=== PATIENT | female | born 1990 | race Caucasian/White ===

== ENCOUNTER 2019-11-25 14:33 | Emergency (ER) | payer OTHER, SELFPAY ==
--- NOTE | ~2019-11-25 | XR_ITS ---
XR chest 2V DATE: 11/25/2019 15:38 INDICATION: Shortness of breath. Burning sensation in chest. TECHNIQUE: 2 views COMPARISON: None FINDINGS: Normal heart size. No hilar or mediastinal enlargement. No pulmonary infiltrate or consolid ation, pleural effusion or pulmonary vascular congestion or pneumothorax. IMPRESSION: Negative Reviewed, dictated and finalized at location A. IMPRESSION: Negative
[2019-11-25 14:38] VITALS: BP 138/85; PULSE 84; RESP 20; TEMP 36.3; O2SAT 100
--- NOTE | 2019-11-25 14:47 | ED_ITS ---
I attest that this documentation has been prepared under the direction and in the presence of Jaleesa Oliveros MD. Melquiades Saavedra, Wendy 11/25/19;14:48 HPI - SOB/Dyspnea General Chief Complaint: Shortness of Breath/Dyspnea Stated Complaint: SHORT OF BREATH Time Seen by Provider: 11/25/19 14:43 History of Present Illness HPI Narrative: wednesday, started feeling burning in her chest and stomach, has not gone away nothing worsens her pain one day ago, SOB Left shoulder pain onset one week ago that is constant and aching, worsens with lifting no cough fever runny nose n/v normal bm experienced pain stress eating vit d def iron anemia abx wednesday amoxicillin for ear infection, resolved ear ache tubal hernia c section Related Data Allergies Allergy/AdvReac Type Severity Reaction Status Date / Time No Known Allergies Allergy Unverified 11/25/19 15:05 Review of Systems Review of Systems: All systems reviewed & are unremarkable except as noted in HPI and below Course Vital Signs Vital signs: Vital Signs Temperature 36.3 C L 11/25/19 14:38 Pulse Rate 84 11/25/19 14:38 Respiratory Rate 20 11/25/19 14:38 Blood Pressure 138/85 11/25/19 14:38 Pulse Oximetry 100 11/25/19 14:38 Temperature 36.3 C L 11/25/19 14:38 Pulse Rate 84 11/25/19 14:38 Respiratory Rate 20 11/25/19 14:38 Blood Pressure 138/85 11/25/19 14:38 Pulse Oximetry 100 11/25/19 14:38
--- NOTE | 2019-11-25 14:58 | ECG_ITS ---
Measurements Intervals Oliver Rate: 85 P: 34 SC: 149 QRS: 25 QRSD: 92 T: 34 QT: 356 QTc: 425 Interpretive Statements SINUS RHYTHM WITH SINUS ARRHYTHMIA NORMAL ECG Electronically Signed On 11-26-2019 9:27:58 CDT by Jesse Fried D.O.
--- NOTE | 2019-11-25 15:07 | ED.CHESTPAIN ---
HPI - Chest Pain General Chief Complaint: Shortness of Breath/Dyspnea Stated Complaint: SHORT OF BREATH Time Seen by Provider: 11/25/19 14:43 Source: patient Mode of arrival: ambulatory Limitations: no limitations History of Present Illness HPI narrative: The pt is a 29 y/o female who presents to the ED c/o 01/20 burning central CP onset three days ago. Pt states that the pain started in her abdomen before moving up into her chest. She states that it has not gone away, but is not worsened by anything. Pt notes that she has experienced CP in the past, but related to anxiety. Pt reports SOB, but denies cough, fever, N/V, and runny nose. Pt states that she has experienced left shoulder pain that worsens with movement for one week. She also states that she was given Amoxicillin on 11/20/19 due to her having an ear infection. Pt states that she takes medication for iron deficiency, Vitamin D deficiency, and stress eating. She states that she has a PSHx of tubal ligation, , and hernia repair. MD complaint: chest pain Onset (ago): day(s) (3) Pain location: other (Central chest, initially started in the ABD) Pain scale (0-10): 5 Quality: burning Exacerbating factors: nothing Associated symptoms: dyspnea and other (Left shoulder pain (Worsens with movement, onset one week ago)) Related Data Home Medications Medication Instructions Recorded Confirmed amoxicillin 875 mg PO BID 11/25/19 bupropion HCl 100 mg PO Q12-24H 11/25/19 ergocalciferol (vitamin D2) unit PO WEEKLY 11/25/19 [Vitamin D2] ferrous sulfate [Iron (ferrous 325 mg PO DAILY 11/25/19 sulfate)] Allergies Allergy/AdvReac Type Severity Reaction Status Date / Time No Known Allergies Allergy Unverified 11/25/19 15:05 Review of Systems Review of Systems: All systems reviewed & are unremarkable except as noted in HPI and below Constitutional: Constitutional: Denies fever(s) ENT: Denies other (Rhinorrhea) Cardiovascular: Cardiovascular: Reports chest pain (Central, burning, started in abdomen) Respiratory: Respiratory: Denies cough and Reports dyspnea Gastrointestinal: Gastrointestinal: Denies nausea and Denies vomiting Musculoskeletal: Musculoskeletal: Reports arthralgias (Left shoulder, worsens with movement, onset one week ago) [facility] Past Medical History Medical History (Updated 11/25/19 @ 16:45 by Jaleesa Oliveros MD) Eating disorder Stress eating Inguinal hernia Iron deficiency Vitamin D deficiency Surgical History Surgical History (Updated 11/25/19 @ 15:15 by Melquiades Saavedra) H/O section H/O inguinal hernia repair H/O tubal ligation Social History Social History (Updated 11/25/19 @ 15:15 by Melquiades Saavedra) Smoking status: Never smoker Comments PCP: Dr. Vallejo Exam Narrative: Exam Narrative: GENERAL: Well-appearing, well-nourished, and in no acute distress. HEAD: Normocephalic, atraumatic EYES: PERRLA and EOMI, conjunctiva clear without discharge EARS: TM's clear bilaterally without erythema or dullness NOSE: Nares clear, no rhinorrhea or epistaxis THROAT:Mucous membranes moist, Oropharynx normal without erythema, exudate, peritonsillar swelling or fluctuance NECK: Supple, without lymphadenopathy or mass RESPIRATORY: No respiratory distress, Airway patent, Respirations non-labored, Clear to auscultation without rales, rhonchi or wheeze HEART: Regular rate and rhythm. No murmur heard. Normal peripheral pulses. ABDOMEN: Soft, nontender, nondistended, normal active bowel sounds. No masses. No rebound or guarding, No organomegaly. EXTREMITIES: No edema, normal strength with full range of motion. SKIN: Warm, dry, normal color without rash NEURO: Alert and oriented x3. CN 2-12 grossly intact. No focal deficits. PSYCH:flat affect. Course Course Emergency Course: PAtient presented with burning epigastric abdominal pain . Her pain she states resolved after GI cocktail. I have discussed labs are
[2019-11-25 15:08] VITALS: PULSE 84
[2019-11-25 15:20] LABS: Basophils Absolute Auto 0.1 K/mm3 (0.0-0.1); Basophils Percent Auto 0.6 % (0.2-1.2); Eosinophils Absolute Auto 0.1 K/mm3 (0-0.3); Eosinophils Percent Auto 1.1 % (0-4.4); Hematocrit 43.3 % (37.0-47.0); Immature Granulocyte Absolute 0.02 K/mm3 (0.00-0.031); Immature Granulocyte Percent A 0.2 % (0-0.5); Lymphocytes Absolute Auto 3.57 K/mm3 (0.9-3.2); Lymphocytes Percent Auto 30.9 % (18.3-44.2); Mean Corpuscular HGB Conc 32.3 g/dl (32-36); Mean Corpuscular Volume 89.6 fl (80-100); Monocytes Absolute Auto 0.7 K/mm3 (0.1-0.6); Monocytes Percent Auto 6.3 % (2.6-8.5); Neutrophils Percent Auto 60.9 % (45.5-73.1); Platelet Count Result 278 k/mm3 (150-375); Red Blood Count 4.83 M/mm3 (4.2-5.4); Red Cell Distribution Width 12.9 % (11.5-14.5); White Blood Count 11.5 K/mm3 (4.5-10.0)
[2019-11-25 15:29] LABS: Fractional Inspired Oxygen 21 %; HCO3 ABG 22.2 mEq/l (22.0-26.0); Methemoglobin ABG 0.3 %THb (0-1.5)
[2019-11-25 15:30] LABS: INR 0.9; Partial Thromboplastin Time 31.2 SECONDS (22.3-36.8); Prothrombin Time 11.9 Seconds (11.1-14.7)
[2019-11-25 15:31] LABS: Add Urine Microscopic? YES; Appearance Urine Clear (Clear); Bilirubin Urine Negative (Negative); Blood Urine 1+ (Negative); Color Urine Yellow (Yellow); Glucose Urine UA Negative (Negative); Ketones Urine Negative (Negative); Leukocyte Esterase Ur Negative LEU/UL (Negative); Mucus Urine Few /lpf; Nitrate Urine Negative (Negative); Protein Urine 1+ mg/dL (Negative); RBC Urine 0-2 /hpf (0-2); Specific Grav Ur 1.026 (1.001-1.035); Squamous Epithelial Cell Urine Many /hpf (Few); Urobilinogen Urine Negative mg/dL (<2.0); WBC Urine 0-3 /hpf
[2019-11-25] MEDS: PANTOPRAZOLE SODIUM IV 40 MG VIAL IV PUSH (15:32)
[2019-11-25 15:33] LABS: D Dimer 0.29 ug/mL (<0.48)
[2019-11-25] MEDS: BELLADONNA ALK/PHENOB ELIX 10 ML, MAG HYDROX/ALUMINUM HYD/SIMETH 30 ML, LIDOCAINE HCL 2... PO (15:33)
[2019-11-25 15:35] LABS: Base Excess ABG -2.1 mEq/l (+/-2.0); Oxygen Saturation ABG 96.8 % (95.0-100.0); PCO2 ABG 36.6 mmHg (35.0-45.0); PO2 ABG 88.2 mmHg (80.0-100.0)
[2019-11-25 15:36] LABS: Alveolar/Arterial O2 Gradient 17.7 mmHg; Carboxyhemoglobin 0.4 % THb (0-2.0); Device ROOM AIR; Modified Allen's Test Pass; Oxygen Content ABG 18.5 %vol (16.0-22.0); Oxyhemoglobin 95.6 % THb (90.0-100.0); Reduced Hemoglobin 3.7 %THb (0-5.0); Site Drawn LEFT RADIAL; Total Hemoglobin 13.7 g/dL (12.0-18.0)
[2019-11-25 15:45] LABS: Troponin I < 0.012 ng/mL (0.000-0.034)
[2019-11-25 16:14] LABS: Alanine Aminotransferase 25 U/L (4-35); Albumin Level 4.7 g/dL (3.5-5.1); Alkaline Phosphatase 85 U/L (38-126); Aspartate Amino Transferase 26 U/L (14-36); Bilirubin,Total 0.3 mg/dL (0.2-1.3); Blood Urea Nitrogen 12 mg/dL (7-17); Calcium 9.5 mg/dL (8.4-10.2); Carbon Dioxide 26 mmol/L (22-30); Chloride 105 mmol/L (98-107); Estimated CRCL calculation 111 ml/min; Estimated Glomerular Filt Rate > 60; Glucose 80 mg/dL (65-105); Lipase 104 U/L (23-300); Magnesium 1.9 mg/dL (1.6-2.3); Potassium 3.8 mmol/L (3.4-5.0); Sodium 140 mmol/L (137-145)
[2019-11-25 16:58] VITALS: BP 113/69; PULSE 78; RESP 18; O2SAT 100
== END 2019-11-25 17:00 | disposition home or self-care (01) ==
PROVIDERS: Emergency Provider General Practice; PCP Family Medicine
DX: R07.89 Other chest pain (principal); K21.9 Gastro-esophageal reflux disease without esophagitis; E55.9 Vitamin D deficiency, unspecified; D50.9 Iron deficiency anemia, unspecified
CPT/HCPCS: 36415; 36600; 71046; 80053; 81001; 81025; 82375; 82805; 83050; 83690; 83735; 84484; 85025; 85380; 85610; 85730; 93005; 96374; 99284; A9270; C9113

== ENCOUNTER 2024-12-01 08:52 | Emergency (ER) | payer OTHER, MEDICAID, SELFPAY ==
--- NOTE | ~2024-12-01 | XR_ITS ---
Right Hand Technique: PA, oblique, and lateral views were obtained. Clinical History: Fifth metacarpal pain Findings: No acute fracture or dislocation is seen. Osseous alignment is anatomic. Joint spaces are p reserved. Soft tissues are unremarkable. Impression: Unremarkable right hand. Reviewed, dictated and finalized at location . Impression: Unremarkable right hand.
--- NOTE | 2024-12-01 09:02 | ED.UPPEXIN ---
HPI - Extremity Injury (Upper) General Chief Complaint: Extremity Injury, Upper Stated Complaint: RT Hand injury Time Seen by Provider: 12/01/24 09:05 Source: patient, RN notes reviewed and old records reviewed Mode of arrival: ambulatory Limitations: no limitations History of Present Illness HPI narrative: 34-year-old female presents to the [facility] with right hand pain. States that 3 days ago she punched hard object. Tenderness and mild swelling noted to the 5th metacarpal. Does have full range of motion of fingers. Treatments prior to arrival: cold therapy Related Data Home Medications ?Medication ?Instructions ?Recorded ?Confirmed ?Last Taken ?Type bupropion HCl 100 mg tablet,12 hr 100 mg PO Q12-24H 11/25/19 Unknown History sustained-release ergocalciferol (vitamin D2) 1,250 unit PO WEEKLY 11/25/19 Unknown History mcg (50,000 unit) capsule (Vitamin D2) ferrous sulfate 325 mg (65 mg 325 mg PO DAILY 11/25/19 Unknown History iron) tablet (Iron (ferrous sulfate)) Allergies Allergy/AdvReac Type Severity Reaction Status Date / Time No Known Allergies Allergy Verified 12/01/24 09:14 Review of Systems Review of Systems: All systems reviewed & are unremarkable except as noted in HPI and below Constitutional: Constitutional: Reports no additional constitutional complaints ENT: Reports system reviewed and no additional complaints, except as documented Cardiovascular: Cardiovascular: Reports no additional cardiovascular complaints, Denies chest pain and Denies dyspnea Respiratory: Respiratory: Reports no additional respiratory complaints, Denies chest congestion, Denies cough and Denies dyspnea Musculoskeletal: Musculoskeletal: Reports as per HPI Integumentary/Breasts: Skin/Breast: Reports system reviewed and no additional complaints, except as docu PMFSH Past Medical History Medical History Eating disorder Stress eating Vitamin D deficiency Iron deficiency Inguinal hernia Surgical History Surgical History H/O tubal ligation H/O section H/O inguinal hernia repair Social History Social History Smoking status: Never smoker Comments At the time of my signature, I reviewed and agree with the nursing past medical, surgical, social, and family history. There is no relevant family history pertinent to the patient complaint. Exam Const: General: cooperative, healthy appearing, comfortable, no acute distress, well developed, alert and well nourished Nutritional Appearance: well nourished and obese Orientation/consciousness: patient oriented x3 Limitations: no limitations HENMT: Head: normal to inspection Eyes: General: appearance normal, both eyes and all related structures Alignment and Position: alignment normal Neck: Neck: normal visual inspection, full ROM, no lymphadenopathy and no meningeal signs Chest: Chest palpation & inspection: normal inspection of the chest Resp: Effort & Inspection: normal respiratory effort and able to speak in complete sentences Cardio: Rate: regular rate Skin: General skin exam: normal color and no rashes or lesions noted Neuro: General: patient oriented x3, gait normal, moves all extremities and no meningeal signs Cognition (Neuro): normal cognition Speech: normal speech Gait exam (Neuro): Normal gait present Extrem: General: normal to inspection, full ROM, capillary refill normal and normal gait Right upper extremity: Extremity exam: right hand normal capillary refill, neuromotor exam normal wrist extension normal, thumb opposition normal, thumb IP flexion normal, thumb ADduction normal and fingers 2-5 ABduction normal, tenderness of the dorsal hand over the 5th metacarpal, normal ROM of fingers and swelling of the dorsal hand over the 5th metacarpal; no abrasions, no lacerations and no ecchymosis Psych: Appearance: grossly normal and well kempt Mental Status: mental status grossly normal Speech and movement: Normal speech and movement present and Clear speech present Affect: normal affect Attitude: cooperative Course Course Level of Care: Express Care Visit Vital Signs Vital signs: Vital Signs Temperature 98.0 F 12/01/24 09:05 Pulse Rate 70 12/01/24 09:05 Respiratory Rate 17 12/01/24 09:05 Blood Pressure 111/71 12/01/24 09:05 Pulse Oximetry 100 12/01/24 09:05 Oxygen Delivery Room Air 12/01/24 09:05 Temperature 98.0 F 12/01/24 09:05 Pulse Rate 70 12/01/24 09:05 Respiratory Rate 17 12/01/24 09:05 Blood Pressure 111/71 12/01/24 09:05 Pulse Oximetry 100 12/01/24 09:05 Oxygen Delivery Room Air 12/01/24 09:05 Reviewed MDM - Extremity Injury (Upper) MDM Narrative Medical decision making narrative: Patient presents with 5th metacarpal pain right hand. Punched something 3 days ago. X-ray negative Patient sitting in exam room. Nontoxic, vitals stable. Patient is appropriate for outpatient treatment with close follow-up. Discharge instructions reviewed with patient, as well as provided in writing per nursing staff. The instructions also include specific and strict return/GO TO THE ER as well as f/u information. All questions have been answered, and the patient deny any further questions with discharge and discharge plan. Some parts of this dictation were generated by voice recognition software and may contain typographical and/or grammatical inaccuracies. Differential Diagnosis Differential diagnosis: Likely other (Hand fracture, contusion, sprain) Imaging Data Radiologist's impression: Right Hand Technique: PA, oblique, and lateral views were obtained. Clinical History: Fifth metacarpal pain Findings: No acute fracture or dislocation is seen. Osseous alignment is anatomic. Joint spaces are preserved. Soft tissues are unremarkable. Impression: Unremarkable right hand. Critical Care Time Critical Care Time Critical Care Time: No Discharge Plan Discharge Clinical Impression: Hand pain, right Patient Disposition: Home, Self-Care Condition: Stable Instructions: Antibiotic Form, Hand Sprain (ED) Additional Instructions: Your Xray did not show a fracture. Ice should be applied to help reduce swelling. It can be used for 20 to 30 minutes, every 2-3 hours while awake. Do not apply ice directly to your skin. You can alternate ibuprofen 600mg and Tylenol 650mg every 4 hours as needed for pain Please schedule a follow-up visit with your personal physician for further evaluation and treatment within 2 weeks especially if symptoms persist. For new or worsening symptoms go directly to the emergency room Patient Language: Libyan Prescriptions: No Action bupropion HCl 100 mg tablet sustained-release 12 hr 100 mg PO Q12-24H ferrous sulfate [Iron (ferrous sulfate)] 325 mg (65 mg iron) Tablet 325 mg PO DAILY ergocalciferol (vitamin D2) [Vitamin D2] 1,250 mcg (50,000 unit) capsule PO WEEKLY pantoprazole 40 mg tablet,delayed release (DR/EC) 40 mg PO QAM 28 Days Qty: 28 0RF Follow-up/Referrals: Sy,MD Federico [Primary Care Provider] - 2 Weeks ([facility] follow-up, right) Stand Alone Forms: Work/School Release IP Time of Disposition: 09:29
[2024-12-01 09:05] VITALS: BP 111/71; PULSE 70; RESP 17; TEMP 36.7; O2SAT 100
--- OUTSIDE RECORDS SUMMARY | 2024-12-01 09:53 | XMS_ITS | Clinical Summary ---
Author Organization [facility] Address [address] [place] [address] Care Team Providers Care Claims Collector Name Role Phone Ina Duran NP Primary Care Provider [phone] Marcelle Solis DO Unavailable Allergies Active Allergy Reactions Criticality Noted Date Comments Nickel Rash Medium 12/13/2017 Reaction: Rash, Medications triamcinolone (KENALOG) 0.1 % cream Apply 1 application topically 2 (two) times a day 2 Active HYDROcodone-odette taminophen (NORCO) 5-325 mg per tabletIndicatio ns:Pain Take 1 tablet by mouth every 6 (six) hours as needed for pain 12 tablet 2 Active Active Problems Problem Noted Date Diagnosed Date TOA (tubo-ovarian abscess) 11/07/2021 Tubo-ovarian abscess 11/07/2021 Abnormal uterine bleeding 08/24/2016 Dysmenorrhea 08/24/2016 Encounter for contraceptive management 6 Id reaction 06/10/2016 Allergic contact dermatitis due to drugs in contact with skin 06/10/2016 Eczema 06/09/2016 Surgical History Surgery Date Site/Laterality Comments [place] DELIVERY ONLY Section - (Added by TW Conv) [place] UNLISTED PROCEDURE ABDOME N PERITONEUM & OMENTUM Hernia Repair - (Added by TW Conv) Family History Medical History Relation Name Comments Asthma Father Family history of asthma - (Added by TW Conv) Diabetes Father Family history of diabetes mellitus - (Added by TW Conv) Relation Name Status Comments Father Social History Tobacco Use Types Packs/Day Years Used Date Smoking Tobacco: Never Smokeless Tobacco: Never Alcohol Use Standard Drinks/Week Comments Yes 0 (1 standard drink = 0.6 oz pur e alcohol) occasionally AUDIT-C Answer Date Recorded Q1: How often do you have a drink containing alc ohol? 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 Gender Identity Not on file Sexual Orientation Not on file Obstetrics History Last Filed Vital Signs Vital Sign Reading Time Taken Comments Blood Pressure 111/72 06/02/2022 8:10 PM CDT Pulse 66 06/02/2022 8:10 PM CDT Temperature 36.7 C (98 F) 06/02/2022 6:05 PM CDT Respiratory Rate 14 06/02/2022 8:10 PM CDT Oxygen Saturation 99% 06/02/2022 8:10 PM CDT Inhaled Oxygen Concentration - - Weight 97.6 kg (215 lb 2.7 oz) 06/02/2022 6:05 P M CDT Height 157.5 cm (5' 2 ) 06/02/2022 6:05 PM CDT Body Mass Index 39.35 06/02/2022 6:05 PM CDT Plan of Treatment Health Maintenance Due Date Last Done Comments Cervical Cancer Screening 1990 Depression Screening 1990 Hepatitis C Screening 1990 DTaP/Tdap/Td Vaccine (1 - Tdap) 2001 Varicella Vaccines (1 of 2 - 13+ 2-dose series) 2003 Hepatitis B Screening 02/19/2008 Regular Well Visit/Exam 18-64 02/19/2008 Influenza Vaccine (#1) 2024 7, 04/13/2017 HPV Vaccines Aged Out No longer eligi ble based on patient's age to complete this topic Pneumococcal vaccine <65 Aged Out No longer eligible based on patient's age to complete this topic Insurance [facility] HMO/PPO Address: [address] [address] [place] [address] Advance Directives For more information, please contact: [phone] * Full Code (Latest Code Status on File) Date Activated Date Inactivated Comments 11/10/2021 11:57 AM 11/10/2021 5:33 PM Care Teams Claims Collector Relationship Specialty Start Date End Date Ina Duran NP PCP - General Internal Medicine 03/21/21 Marcelle Solis DO [facility] [place] [address] Consulting Physician Obstetrics and Gynecology 11/10/21
--- OUTSIDE RECORDS SUMMARY | 2024-12-01 09:53 | XMS_ITS | Clinical Summary ---
Author Organization [facility] Address [address] [place] [address] Care Team Providers Care Armed Security Professional Name Role Phone Taya Vallejo MD Primary Care Provider Source Comments [facility],non-owned Affiliates and Associated Physician Practices is amultiple site organization consisting of ambulatory clinics and hospital sitesin [place], [place], [place]. This disclosure is being madepursuant to the Care Everywhere program and may not contain all information available regarding this patient. Last updated 18.[facility] Allergies Active Allergy Reactions Criticality Noted Date Comments Nickel Rash Medium 12/13/2017 Medications Be aware that medications may not be up to date on this document. Always verify current medications with the patient. No known medications Active Problems Patient Care Coordination No te Formatting of this note migh t be different from the original. [facility] 10/2017 Problem Noted Date Diagnosed Date Supervision of high risk in third trim vikram 12/13/2017 Itching 12/11/2017 GBS (group B Streptococcus c arranna), +RV culture, currently 11/29/2017 macrosomia during in third trime ster 11/25/2017 Gestational diabetes mellitus (GDM) in third tri mester 10/27/2017 Supervision of high risk , antepartum 0 10/14/2017 Obesity affecting in second trimester 08/23/2017 Subchorionic hemorrhage in first trimester 08/23 H/O: section 07/23/2017 H/O hernia repair 07/23/2017 Immunizations Name Administration Dates Next Due INFLUENZA VACCINE 04/13/2017 Rho D Immune Globulin 12/14/2017 Family History Medical History Relation Name Comments Diabetes - Type 2 Father Hypertension Father Diabetes - Type 2 Maternal Grandmother Relation Name Status Comments Father Maternal Grandmother Social History Tobacco Use Types Packs/Day Years Used Date Smoking Tobacco: Never Smokeless Tobacco: Never Tobacco Cessation:Counseling Given: Yes Alcohol Use Standard Drinks/Week Comments No 0 (1 standard drink = 0.6 oz pur e alcohol) Sex and Gender Information Value Date Recorded Sex Assigned at Not on file Gender Identity Not on file Sexual Orientation Not on file Last Filed Vital Signs Vital Sign Reading Time Taken Comments Blood Pressure 114/79 12/22/2017 2:12 PM CDT Pulse 83 12/22/2017 2:12 PM CDT Temperature 36.3 C (97.4 F) 12/16/2017 2:40 PM CDT Respiratory Rate 16 12/16/2017 2:40 PM CDT Oxygen Saturation 100% 12/16/2017 12:00 AM CDT Inhaled Oxygen Concentration - - Weight 93.4 kg (206 lb) 12/22/2017 2:12 PM CDT Height 157.5 cm (5' 2 ) 12/14/2017 11:00 AM CDT Body Mass Index 37.68 12/14/2017 11:00 AM CDT Plan of Treatment Health Maintenance Due Date Last Done Comments PAP SMEAR 1990 HIV SCREENING 2005 HEPATITIS C SCREENING 02/14/2008 DTAP/TDAP/TD VACCINES (1 - Tdap) 2009 HEPATITIS B VACCINE (1 of 3 - 19+ 3-dose series) 2009 COVID-19 VACCINE (2023-2 5 season) 2024 INFLUENZA VACCINE (#1) 2024 04/13/2017 DEPRESSION SCREENING 09/13/2024 ZOSTER VACCINE (1 of 2) 02/19/2040 HIB VACCINE Aged Out No longer eligi ble based on patient's age to complete this topic HPV VACCINE Aged Out No longer eligi ble based on patient's age to complete this topic MENINGOCOCCAL (Group B) VACC INE SHARED DECISION-MAKING Aged Out No longer eligibl e based on patient's age to complete this topic MENINGOCOCCAL GROUPS A/C/Y/W VACCINE Aged Out No longer eligible b ased on patient's age to complete this topic PNEUMOCOCCAL VACCINE Aged Out No long er eligible based on patient's age to complete this topic Procedures Procedure Name Priority Date/Time Associated Diagnosis Comments CULTURE STREP B Routine 11/25/2017 2:49 PM CDT Supervision of high risk , antepartum from Last 3 Months or Most Recently Relevant to Health Maintenance Results * (ABNORMAL) CULTURE STREP B (11/25/2017 2:49 PM CDT) Culture Strep B Growth of Streptococcus agalactiae (Group B)(AA) ENRIQUE 11/29/2017 10:07 AM CDT [facility]CRO[facility] Microbiology MISCELLANEOUS SAMPLES / Unknown Collection / Unknown 11/25/2017 2:49 PM CDT 11/25/2017 2:55 PM CDT Narrative [facility] - 11/29/2017 10:07 AM CDT Susceptibility testing of penicillin, other beta-lactam antibiotics, and vancomycin is not necessary for beta-hemolytic streptococci groups A,B,C and G because resistant strains have not been recognized. 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 Adv Directive/Living Will/POA 10/27/2017 1:10 PM [place] EXP 02/2020 * Full Code (Latest Code Status on File) Date Activated Date Inactivated Comments 12/13/2017 11:00 AM 12/16/2017 8:13 PM * Full Code Date Activated Date Inactivated Comments 12/11/2017 2:01 PM 12/11/2017 4:37 PM * Full Code Date Activated Date Inactivated Comments 12/11/2017 1:19 PM 12/11/2017 2:01 PM * Full Code Date Activated Date Inactivated Comments 10/14/2017 11:19 AM 10/14/2017 1:43 PM Care Teams Armed Security Professional Relationship Specialty Start Date End Date Taya Vallejo MD [address] [place] [address] [place] [address] PCP - General Family Medicine 10/27/17
--- OUTSIDE RECORDS SUMMARY | 2024-12-01 09:53 | XMS_ITS | Referral Summary ---
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
--- OUTSIDE RECORDS SUMMARY | 2024-12-01 09:53 | XMS_ITS | Clinical Summary ---
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 Gender Identity Not on file Sexual Orientation Not on file Plan of Treatment Health Maintenance Due Date Last Done Comments Hepatitis C Virus (HCV) Screening 1990 TdaP Immunization 1990 Hepatitis B Immunization (1 of 3 - 19+ 3-dose series) 2009 Pap Smear 2011 Cervical Cancer Screening (CCS) 02/19/2020 HPV/Cotest 02/19/2020 Influenza Immunization (#1) 05/14/202405/2017, 09/26/2009, 09/26/2009 SARS-COV-2 Immunization ( season) 2024 Respiratory Syncytial Virus (RSV) Immunization (Adult) (1 - 1-dose 75+ series) 2065 Meningococcal Immunization (ACWY) Aged Out No longer eligible b ased on patient's age to complete this topic Pneumococcal Immunization Combined Aged Out No longer eligible b ased on patient's age to complete this topic Rotavirus Immunization Aged Out No lo nger eligible based on patient's age to complete this topic
--- OUTSIDE RECORDS SUMMARY | 2024-12-01 09:54 | XMS_ITS | CONTINUITY OF CARE DOCUMENT ---
Author Name lb asher Address Unknown Organization [facility] Address [address] [facility] [address] [place] [address] Phone [phone] Care Team Providers Care Integrity Engineer Name Role Phone Teo ROACH, Cesar Unavailable DARNELL MONTANEZ, JUAN CARLOS Unavailable [phone] DARNELL MONTANEZ, JUAN CARLOS Unavailable PROBLEMS Condition Status Date Provider Notes Obese active Cesar Bruce MD Iron deficiency anemia active Cesar leyva MD Dizziness and lightheadedness active Valentin Bruce MD Unspecified chest pain active Cesar leyva MD ENCOUNTERS Date Type Provider Location Encounter Diag nosis - In-person encounter Office Visit Cesar Bruce MD [facility] - In-person encounter Office Visit Cesar Bruce MD [facility] Unspecified chest painDizziness and lightheadednessIron deficiency anemiaObese VITAL SIGNS Date Observation Value Provider Body Mass Index (Ratio) 39.68 kg/m2 Ken Bruce MD blood pressure, diastolic 80 mm[Hg] Kandy nkLogic blood pressure, systolic 120 mm[Hg] Priscilla kLogic blood pressure, cuff size large Tr laurie Mcintosh blood pressure, diastolic 80 mm[Hg] Tr laurie Mcintosh blood pressure, systolic 120 mm[Hg] Try nett Mcintosh oxygen saturation, oximetry 98 % Tryrikki Mcintosh respiratory rate E&M 18 /min Trynett Mcintosh pulse rate 101 /min Trynett Mcintosh weight E&M 224 [lb_av] Trynett Mcintosh height E&M 63 [in_i] Tryrikki Mcintosh weight E&M 225 [lb_av] Ingrid Valerashawanda in Body Mass Index (Ratio) 39.85 kg/m2 Ken Bruce MD blood pressure, diastolic 80 mm[Hg] Kandy nkLogic blood pressure, systolic 110 mm[Hg] Priscilla kLogic blood pressure, cuff size large Ke rri Arnold blood pressure, diastolic 80 mm[Hg] Ke rri Brandonuemiguel blood pressure, systolic 110 mm[Hg] Yoselin Barrett oxygen saturation, oximetry 98 % Lizabeth Barrett respiratory rate E&M 16 /min Lizabeth molina pulse rate 82 /min Lizabeth Perez lder weight E&M 225 [lb_av] Lizabeth Perez lder height E&M 63 [in_i] Lizabeth drakeer SOCIAL HISTORY Date Observation Value Provider social history reviewed E&M revi ewed - no changes required Reyes So NP smoking status Never smoker Jayme estrada social history reviewed E&M revi ewed - no changes required Cesar Bruce MD social history E&M S moking History: Luis chacorta has never smoked. Cesar Bruce MD smoking status Never smoker Lizabeth britton INSURANCE PROVIDERS Payer name Policy type / Coverage type [employer] party ID [place] [employer] (2) Medicaid [id number] ADVANCE DIRECTIVES Name Date DISCUSSED - NO DECISION MADE TREATMENT PLAN Date Name Performer [id number],C,T he patient states she has episodes at night where she wakes up gasping ofr air, 'like she was forgetting to breath'. She also admits to daytime sleepiness. I am going to obtain a home sleep study to asses for MARSHALL. Reyes So NP [id number],C,S he continues on PO Iron supplementation as directed by her PCP Reyes So NP [id number],C,H er stress test was negative for ischemia and her echo shows normal LV systolic function. I will not pursue any additional cardiac testing at this time. Reyes So NP [id number],S,Possibly has MARSHALL. Cesar Bruce MD [id number],S,Treated by LANCE Smith. Cesar Bruce MD [id number],S,W ill schedule stress test and echo and await results. Cesar Bruce MD Cardiology:The patie nt states she has episodes at night where she wakes up gasping ofr air, 'like she was forgetting to breath'. She also admits to daytime sleepiness. I am going to obtain a home sleep study to asses for MARSHALL. Reyes So NP Cardiology:She colin nues on PO Iron supplementation as directed by her PCP Reyes So NP Cardiology:Her stres s test was negative for ischemia and her echo shows normal LV systolic function. I will not pursue any additional cardiac testing at this time. Reyes So NP Cardiology:Possibly has MARSHALL. Clive Bruce MD Cardiology:Treated by PCP. Bismark Bruce MD Cardiology:Will sche dule stress test and echo and await results. Cesar Bruce MD Date Name Sleep Study Home Stress Routine Complete Echo Stress Exercise Card iolite HISTORY OF PROCEDURES Procedure Date Procedure Name Provider Procedure Notes S tatus EKG Cesar Bruce MD complet ed EKG Cesar Bruce MD complet ed
--- OUTSIDE RECORDS SUMMARY | 2024-12-01 09:54 | XMS_ITS | Clinical Summary ---
Author Organization [facility] Address [address] [place] [phone] Phone [email or web address] Care Team Providers Care Foley Artist Name Role Phone Selena Morris CHIEF CONTROLLER TOWER Primary Care Provider [phone] Allergies Active Allergy Reactions Criticality Noted Date Comments Nickel Rash,Itching Medium 12/13/2017 Reaction: Rash, Medications No known medications Active Problems Problem Noted Date Diagnosed Date Moderate episode of recurrent major depressive d isorder 04/04/2024 Assessment & Plan (05/05/2024 11:02 AM CDT): Continue Wellbutrin Contact EAP to establish with counselor. Increase cardio exercise Follow up in 6 weeks, sooner if needed To ER with [facility] Assessment & Plan (04/04/2024 2:35 PM CDT): Restart Wellbutrin Contact EAP to establish with counselor. Increase cardio exercise Follow up in 1 month, sooner if needed To ER with [facility] Wellness examination 12/27/2023 Assessment & Plan (12/27/2023 1:27 PM CDT): Healthy Behavior Recommendations: Evidence suggests an active lifestyle and achieving and maintaining an ideal body weight (20-25 BMI) is optimal for health. Experts recommend at least 30 minutes of moderate to vigorous activity per day as tolerated, 5 days a week. Eat healthy, including plenty of fresh fruits and vegetables daily. Strive to have 2/3 cup of your plate to be vegetables, fruits, whole grains and beans, while 1/3 or less should be an animal product. Choose fish and chicken and limit red meat and processed meats. Limit alcohol intake to tone drink or less per day for a woman. Avoid smoking! Practice sun safety: Use a water resistant sunscreen with SPF of at least 30 to protect against UVA and UVB rays to protect against skin cancer. Apply sunscreen every two hours or after swimming or excessive sweating. Consider using physical barriers whenever possible (ex. Hats, shirts with sleeves, avoid direct sun during peak hours). Keep up-to-date on general health screening tests, including cholesterol, blood pressure and glucose (blood sugar) levels. Get an annual influenza vaccine (flu shot). Get vaccinated with the pneumococcal vaccine if > 64 yrs old, which prevents a type of pneumonia, and re-vaccinated as determined by your primary healthcare team. Get vaccinated with the shingles vaccine if > 50 yrs old COVID19 vaccine recommended. Keep up-to-date on dental and eye exams. BMI 38.0-38.9,adult 12/27/2023 Assessment & Plan (12/27/2023 1:27 PM CDT): Pt has an elevated BMI over 30 Body mass index is BMI Readings from Last 1 Encounters: 12/27/23 38.78 kg/m and you will need to work hard on reducing carbohydrates and total calories. You may use the free smart phone lu [employer] to help track calories and try to reduce by 15% every 4 weeks. You should also work on reducing your total portion sizes. You should be exercising about 30 minutes every day with cardio work outs. You should strive to avoid regular soda, juices and alcohol. Obesity 12/27/2023 Lateral epicondylitis of right elbow 12/27/2023 Assessment & Plan (12/27/2023 1:29 PM CDT): Ibuprofen 600 three times daily x 7-10 days. Can use tylenol as well if needed Elbow brace can be used Light activity only Follow up if no improvement or worsening. Abdominal hernia 10/19/2023 Overview (10/19/2023): scar Adjustment disorder with anxious mood 10/19/2023 Bilateral plantar fasciitis 04/03/2021 Eczema 06/09/2016 Resolved Problems Problem Noted Date Diagnosed Date Resolved Date Elevated LFTs 10/19/2023 10/19/2023 Tremor 10/19/2023 12/27/2023 Tubo-ovarian abscess 11/07/2021 024 Gestational diabetes mellitu s (GDM) in third trimester 10/27/2017 10/19/2023 H/O hernia repair 07/23/2017 10/19/2023 H/O: section 07/23/20172023 Encounters Date Type Department Care Team Description 10/16/2024 1:00 PM BOW MAKER GIFT WRAPPING Office Visit [address] [address] Selena Morris, CHIEF CONTROLLER TOWER Dysfunction of both eustachian tubes (Primary Dx) 10/05/2024 6:00 AM BOW MAKER GIFT WRAPPING Office Visit [address] [phone] Selena Morris, CHIEF CONTROLLER TOWER Dysfunction of both eustachian tubes (Primary Dx) 09/25/2024 1:30 PM BOW MAKER GIFT WRAPPING Office Visit [address] [phone] Selena Morris, CHIEF CONTROLLER TOWER Viral syndrome (Primary Dx) from Last 3 Months Immunizations Name Administration Dates Next Due H1N1 All Forms (CVX-128) 09/26/2009 Hepatitis A (HAVRIX-ADULT VAQTA-ADULT) (CVX-52) 08/24/2014 Influenza (Afluria Fluzone) quad (CVX-158) 06/21 Influenza, unspecified (CVX-88) 04/13/2017,09/26 Rho(D) (RhoGAM) Immune Globulin (CVX-157) 2017 Family History Medical History Relation Name Comments Diabetes Father Hypertension Father Diabetes Maternal Grandmother Diabetes Mother Hypertension Mother Relation Name Status Comments Father Maternal Grandmother Mother Social History Tobacco Use Types Packs/Day Years Used Date Smoking Tobacco: Never Smokeless Tobacco: Never Tobacco Cessation:Counseling Given: Not Answered Alcohol Use Standard Drinks/Week Comments Yes 0 (1 standard drink = 0.6 oz pur e alcohol) socially Alcohol Use Answer Date Recorded Alcohol Use Status Yes 12/27/2023 Depression Answer Date Recorded PHQ Total Score 2 05/05/2024 Stress Answer Date Recorded Stress in your Life Not on file 07/20/2024 Dealing with Stress 3 07/20/2024 Comments Unknown Sex and Gender Information Value Date Recorded Sex Assigned at Female 10/19/2023 2:52 PM BOW MAKER GIFT WRAPPING Legal Sex Male 3:29 PM BOW MAKER GIFT WRAPPING Gender Identity Female 10/19/2023 2:52 PM BOW MAKER GIFT WRAPPING Sexual Orientation Not on file Last Filed Vital Signs Vital Sign Reading Time Taken Comments Blood Pressure 120/80 10/16/2024 1:02 PM BOW MAKER GIFT WRAPPING Pulse 92 10/16/2024 1:02 PM BOW MAKER GIFT WRAPPING Temperature 36.8 C (98.2 F) 10/16/2024 1:02 PM BOW MAKER GIFT WRAPPING Respiratory Rate 20 10/16/2024 1:02 PM BOW MAKER GIFT WRAPPING Oxygen Saturation 98% 10/16/2024 1:02 PM BOW MAKER GIFT WRAPPING Inhaled Oxygen Concentration - - Weight 103 kg (227 lb 6.4 oz) 10/16/2024 1:02 PM BOW MAKER GIFT WRAPPING Height 157.5 cm (5' 2 ) 10/16/2024 1:02 PM BOW MAKER GIFT WRAPPING Body Mass Index 41.59 10/16/2024 1:02 PM BOW MAKER GIFT WRAPPING Plan of Treatment Health Maintenance Due Date Last Done Comments Tetanus Diphtheria and Pertussis Immunization (1 - Tdap) 2009 Influenza Immunization (#1) 2024 06/21/2017, 04/13/2017, 09/26/2009, Additional history exists Dental Cleaning/Exam 07/14/2024 07/14/2023 Annual Preventive Exam 12/26/2024 12/27/2023 Cervical Cancer Screening 12/26/2024 04/13/2018 Po stponed from 04/13/2023 (Awaiting appt) Hepatitis A Immunization Aged Out 08/24/2014 No longer eligible based on patient's age to complete this topic Covid-19 Immunization Discontinued HIB Immunization Aged Out No longer e ligible based on patient's age to complete this topic HIV Screening Discontinued HPV Immunization Aged Out No longer e ligible based on patient's age to complete this topic Hep B Infection Screening - Triple Screen Discontinued Hepatitis B Immunization Discontinued Hepatitis C Screening Discontinued Pneumococcal: Ped (0 to 5 Yrs) and At-Risk Member (6 to 64 Yrs) Aged Out No longer eligible based on patient's age to complete this topic Polio Immunization Aged Out No longer eligible based on patient's age to complete this topic Varicella Immunization Aged Out No lo nger eligible based on patient's age to complete this topic Insurance R NO COPAY NB Care Teams Foley Artist Relationship Specialty Start Date End Date Selena Morris NP [address] [place] [address] PCP - General Family Medicine 12/27/23
--- OUTSIDE RECORDS SUMMARY | 2024-12-01 09:54 | XMS_ITS | Data Portability ---
Author Organization [facility] , [facility] Address [address] [place] [address] Assessment No assessment recorded. Plan of Treatment Reminders Order Date Submit Date Provider Last Modified By Organization Details Last Modified Time Details Appointments None recorded. Lab CBC w/ auto diff 2021 [facility], [address] [place], [address], 06:46:39 CBC 2021 [facility], [address] [place], [address], 06:20:34 Referral None recorded. Procedures None recorded. Surgeries None recorded. Imaging US, transvagina l 2021 [email or web address] 0 Not available 21:58:47 US, transvagina l 2021 MARIAM Not available 12:32:37 Medication Orders Sprintec (28) 0.25 mg-0.035 mg tablet 2021 [facility] [facility], [place], [address], 11:39:22 Patient TargetsNo targets recorded. Patient InstructionsNo instructions recorded. Reason for Referral None Reported. Results Created Date Observation Date Name Description Value Unit Range Abnormal Flag Note LastModifiedBy Organization Detail LastModifiedTime 11/20/1911/20/2021 CBC (H/H, RBC, INDIC ES, WBC, PLT) white blood cell count 10.4 thous and/u L 3.8-10 .8 normal Not Available [address], [address], 11/20/2021 06:20:34 11/20/19 22 11/20/2021 CBC (H/H, RBC, INDIC ES, WBC, PLT) red blood cell count 4.88 richard on/uL 3.80-5 .10 normal Not Available [address], [address], 11/20/2021 06:20:34 11/20/19 22 11/20/2021 CBC (H/H, RBC, INDIC ES, WBC, PLT) hemoglobin 13.4 g/dL 11.7-1 5.5 normal Not Available [address], [address], 11/20/2021 06:20:34 11/20/19 22 11/20/2021 CBC (H/H, RBC, INDIC ES, WBC, PLT) hematocrit 42.0 % 35.0-4 5.0 normal Not Available [address], [address], 11/20/2021 06:20:34 11/20/19 22 11/20/2021 CBC (H/H, RBC, INDIC ES, WBC, PLT) MCV 86.1 fL 80.0-1 00.0 normal Not Available [address], [address], 11/20/2021 06:20:34 11/20/19 22 11/20/2021 CBC (H/H, RBC, INDIC ES, WBC, PLT) MCH 27.5 pg 27.0-3 3.0 normal Not Available [address], [address], 11/20/2021 06:20:34 11/20/19 22 11/20/2021 CBC (H/H, RBC, INDIC ES, WBC, PLT) MCHC 31.9 g/dL 32.0-3 6.0 low Not Available [address], [address], 11/20/2021 06:20:34 11/20/19 22 11/20/2021 CBC (H/H, RBC, INDIC ES, WBC, PLT) RDW 13.6 % 11.0-1 5.0 normal Not Available [address], [address], 11/20/2021 06:20:34 11/20/1911/20/2021 CBC (H/H, RBC, INDIC ES, WBC, PLT) platelet count 327 thous and/u L 140-40 0 normal Not Available [address], [address], 11/20/2021 06:20:34 11/20/19 22 11/20/2021 CBC (H/H, RBC, INDIC ES, WBC, PLT) MPV 11.0 fL 7.5-12 .5 normal Not Available [address], [address], 11/20/2021 06:20:34 12/02/19 22 12/02/2021 CBC (INCL UDES DIFF/ PLT) white blood cell count 9.4 thous and/u L 3.8-10 .8 normal Not Available [address], [address], 12/02/2021 06:46:39 12/02/19 22 12/02/2021 CBC (INCL UDES DIFF/ PLT) red blood cell count 4.27 richard on/uL 3.80-5 .10 normal Not Available [address], [address], 12/02/2021 06:46:39 12/02/19 22 12/02/2021 CBC (INCL UDES DIFF/ PLT) hemoglobin 12.0 g/dL 11.7-1 5.5 normal Not Available [address], [address], 12/02/2021 06:46:39 12/02/19 22 12/02/2021 CBC (INCL UDES DIFF/ PLT) hematocrit 37.2 % 35.0-4 5.0 normal Not Available [address], [address], 12/02/2021 06:46:39 12/02/1912/02/2021 CBC (INCL UDES DIFF/ PLT) MCV 87.1 fL 80.0-1 00.0 normal Not Available [address], [address], 12/02/2021 06:46:39 12/02/19 22 12/02/2021 CBC (INCL UDES DIFF/ PLT) MCH 28.1 pg 27.0-3 3.0 normal Not Available [address], [address], 12/02/2021 06:46:39 12/02/19 22 12/02/2021 CBC (INCL UDES DIFF/ PLT) MCHC 32.3 g/dL 32.0-3 6.0 normal Not Available [address], [address], 12/02/2021 06:46:39 12/02/19 22 12/02/2021 CBC (INCL UDES DIFF/ PLT) RDW 13.5 % 11.0-1 5.0 normal Not Available [address], [address], 12/02/2021 06:46:39 12/02/19 22 12/02/2021 CBC (INCL UDES DIFF/ PLT) platelet count 285 thous and/u L 140-40 0 normal Not Available [address], [address], 12/02/2021 06:46:39 12/02/1912/02/2021 CBC (INCL UDES DIFF/ PLT) MPV 10.7 fL 7.5-12 .5 normal Not Available [address], [address], 12/02/2021 06:46:39 12/02/19 22 12/02/2021 CBC (INCL UDES DIFF/ PLT) absolute neutrophils 4991 cells /uL 1500-7 800 normal Not Available [address], [address], 12/02/2021 06:46:39 12/02/19 22 12/02/2021 CBC (INCL UDES DIFF/ PLT) absolute lymphocytes 3591 cells /uL 850-39 00 normal Not Available [address], [address], 12/02/2021 06:46:39 12/02/19 22 12/02/2021 CBC (INCL UDES DIFF/ PLT) absolute monocytes 649 cells /uL 200-95 0 normal Not Available [address], [address], 12/02/2021 06:46:39 12/02/1912/02/2021 CBC (INCL UDES DIFF/ PLT) absolute eosinophils 113 cells /uL 15-500 normal Not Available [address], [address], 12/02/2021 06:46:39 12/02/19 22 12/02/2021 CBC (INCL UDES DIFF/ PLT) absolute basophils 56 cells /uL 0-200 normal Not Available [address], [address], 12/02/2021 06:46:39 12/02/19 22 12/02/2021 CBC (INCL UDES DIFF/ PLT) neutrophils 53.1 % normal Not Available [address], [address], 12/02/2021 06:46:39 12/02/19 22 12/02/2021 CBC (INCL UDES DIFF/ PLT) lymphocytes 38.2 % normal Not Available [facility] [address], [address], 12/02/2021 06:46:39 12/02/1912/02/2021 CBC (INCL UDES DIFF/ PLT) monocytes 6.9 % normal Not Available [facility] [address], [address], 12/02/2021 06:46:39 12/02/19 22 12/02/2021 CBC (INCL UDES DIFF/ PLT) eosinophils 1.2 % normal Not Available [address], [address], 12/02/2021 06:46:39 12/02/19 22 12/02/2021 CBC (INCL UDES DIFF/ PLT) basophils 0.6 % normal Not Available [address], [address], 12/02/2021 06:46:39 12/04/1912/01/2021 US, trans vagin al No observ ation record ed. [email or web address] [address], [place], [address], 12/07/2021 16:46:18 06/17/2006/15/2022 US, trans vagin al No observ ation record ed. [email or web address] [address], [place], [address], 06/18/2022 22:26:12 Result Notes None recorded. Procedures Surgical History Date Name Laterality Status Provider Name and Address Organization Details Recorded Time ligation of bilateral fallopian tubes completed [place]zana Fritze [place] [facility] 11/19/2021 10:48:03 [facility] 11/19/2021 10:48:10 [facility]ia [facility] w/mesh [facility] 11/19/2021 10:48:16 Imaging Results Imaging Date Name Status LastModified by Organization Details LastModified Time 12/01/2021 US, transvaginal completed [email or web address] [address], [place], [address], 12/07/2021 16:46:18 06/15/2022 US, transvaginal completed [email or web address] [address], [place], [address], 06/18/2022 22:26:12 Procedure Notes None recorded. Medical Equipment None Reported. Allergies Allergen ID Allergen Name Allergen Category Reaction Reaction Severity Criticality Documentation Date Start Date Code Code System Note Provider Name and Address Organization Details Recorded Time 930066 nickel environme nt Not available Not available Not available 11/19/2021 48812 29 RxNorm Not Available Not Available Not Available No known drug allergies Medications Name Sig Start Date Stop Date Status Note LastModified by Organization Details LastModified Time amoxicillin 500 mg capsule TAKE 1 CAPSULE BY MOUTH EVERY 8 HOURS UNTIL GONE 06/15 completed Not Available Not Available Not Available doxycycline hyclate 100 mg capsule TAKE 1 CAPSULE BY MOUTH TWICE DAILY FOR 10 DAYS 06/15 completed Not Available Not Available Not Available hydrocodone 5 mg-acetamin ophen 325 mg tablet TAKE 1 TABLET BY MOUTH EVERY 6 HOURS NEEDED FOR PAIN 06/15 completed Not Available Not Available Not Available metronidazo le 500 mg tablet TAKE 1 TABLET BY MOUTH THREE TIMES DAILY FOR 14 DAYS 06/15 completed Not Available Not Available Not Available ciprofloxac in 500 mg tablet 06/15 completed Not Available Not Available Not Available sulfamethox azole 800 mg-trimetho prim 160 mg tablet 06/15 completed Not Available Not Available Not Available tramadol 50 mg tablet TAKE 1 TABLET BY MOUTH EVERY 6 HOURS NEEDED FOR PAIN 06/15 completed Not Available Not Available Not Available triamcinolo ne acetonide 0.1 % topical cream APPLY A THIN LAYER EXTERNALL Y TO THE AFFECTED ARE TWICE DAILY 06/15 completed Not Available Not Available Not Available doxycycline monohydrate 100 mg capsule TAKE 1 CAPSULE BY MOUTH TWICE DAILY FOR 14 DAYS active Not Available Not Available No t Available diclofenac sodium 75 mg tablet,vania yed release 06/15 completed Not Available Not Available Not Available albuterol sulfate HFA 90 mcg/actuati on aerosol inhaler active Not Available Not Available Not Available fluticasone propionate 50 mcg/actuati on nasal spray,suspe nsion 06/15 completed Not Available Not Available Not Available Sprintec (28) 0.25 mg-0.035 mg tablet Take 1 tablet every day by oral route. active Not Available Not Available No t Available bupropion HCl XL 150 mg 24 hr tablet, extended release active Not Available Not Available Not Available nitrofurant oin monohydrate /macrocryst als 100 mg capsule TAKE 1 CAPSULE BY MOUTH EVERY 12 HOURS FOR 7 DAYS 06/15 completed Not Available Not Available Not Available Vitals Date Recorded Body height Body mass index (BMI) Body weight Body temperature Systolic blood pressure Diastolic blood pressure Provider Name and Address Organization Details Last Updated DateTime 157.48 cm 39.9 kg/m2 82371.1 4 g 97.5 [degF] 130 mm[Hg] 82 mm[Hg] Farzanashaina Morrow [facility] 2 10:53:38 Date Recorded Body height Body mass index (BMI) Body weight Systolic blood pressure Diastolic blood pressure Provider Name and Address Organization Details Last Updated DateTime 12/01/2021 157.48 cm 39.3 kg/m2 26085.36 g 118 mm[Hg] 70 mm[Hg] Radha Nely [facility] 2 13:15:13 Date Recorded Body height Body mass index (BMI) Body weight Systolic blood pressure Diastolic blood pressure Provider Name and Address Organization Details Last Updated DateTime 06/15/2022 157.48 cm 39.5 kg/m2 37974.95 g 140 mm[Hg] 90 mm[Hg] Eun Lang [facility] 2 11:05:51 Social History Question Answer Notes LastModified by Organizat ion Details LastModified Time How Many Children Do You Have? 4 Information not available 11/19/2021 What Is Your Relationship Status? Information not available 11/19/2021 Are You Sexually Active? Yes Information not available 11/19/2021 Sex: Unknown Functional Status None recorded. Mental Status None recorded. Family History Relationship Description Onset Age of this Age Resolved Age Notes LastModified by Organization Details LastModified Time Father No current problems or disability [email or web address] Not available 11/19 10:47:39 Mother No current problems or disability [email or web address] Not available 11/19 10:47:39 Medical History No medical history recorded. Gynecological History Statement/Question Response Most Recent Mammogram Current Control Method Tubal Ligat ion Flow Heavy Date of LMP 11/18/2021 Frequency of Cycle (Q days) 28 Obstetrics History GPAL:G 4 P 4 0 0 4 Type Value Full Term 4 Living 4 Total 4 Past Encounters Encounter ID Performer Location Encounter Start Date Encounter Closed Date Diagnosis/Indication Diagnosis SNOMED-CT Code Diagnosis ICD10 Code Diagnosis Note [id number] KALPESH EUSEBIO POWERS [facility] [address] [place] [address] 11/19/2021 10:34:27 11/19/2021 12:15:45 Tubo-ovarian abscess [id number] N70.93 Spoke with DO Will (admitting physician for IVABX 2 weeks ago). She states CBC today. CBC and repeat TVUS next week after completion of PO ABX to evaluate. Patient to schedule with physician for this. Worsening s/s return to ED [id number] Tammy Garsia MD [facility] h [address] [place] [address] 12/01/2021 11:58:12 12/02/2021 09:20:44 Pain in pelvis 12056881 R10.2 Tubo-ovarian abscess [id number] N70.93 Pelvic u/s wnl today. Reassuranc e provided. Repeat CBC ordered to ensure WBC count continues to remain wnl. Patient due for AEX, instructed to follow up in another 2 weeks for AEX w/ pap. [id number] MUKESH RUBIN DO [facility] [address] [place] [address] 06/15/2022 10:26:14 06/15/2022 13:32:45 Cyst of ovary 69033818 N83.209 CT in ER demonstrat ed cysts on ovaries, today US demonstrat ed normal follicles. Discussed with patient the results from US are more reliable than CTs when evaluating ovaries. Reassured that it was good news to not see a large ovarian cyst on her ovary Dysmenorrhea [id number] N 94.6 Dysmenorrh ea - Reviewed possible etiologies , physiologi c vs endo/adeno as most common - S/p tubal for contracept ion - Discussed options for treatment including NSAIDs, COCs, hormonal IUD - Interested in trying DALIA, rx given Health Concerns Section Related Observation LastModified by Organization Detai ls LastModified Time None Recorded Concern Status LastModified by Organization Details LastModified Time None Recorded Advance Directives Directive None Recorded Payers Encounter Date Sequence Insurance Name Policy Number Policy Vargas Covered Member ID Vargas Member ID Guarantor Name 11/19/2021 1 [employer] ON OR AFTER 03/13/21 (MEDICAID REPLACEMENT - HMO) Ashley Phoenix [id number] Ashley Phoenix 12/01/2021 1 [employer] ON OR AFTER 03/13/21 (MEDICAID REPLACEMENT - HMO) Ashley Phoenix [id number] Ashley Phoenix 06/15/2022 1 [employer] ON OR AFTER 03/13/21 (MEDICAID REPLACEMENT - HMO) Ashley Phoenix [id number] Ashley Phoenix Notes Date Note Type Note Provider Name and Address Organization Details Recorded Time 11/19/2021 text/html Pelvic PainReported bypatient.Location :left; lower abdominal Onset/Timin-7 days Duration:constant Quality:sharp Severity:moderate KALPESH EUSEBIO POWERS, [facility] [address] [facility], [place], [address], [facility] - [facility] 11/19/2021 11:19:36 12/01/2021 text/html Ashley is here for follow-up after recent admission for TOA and IV antibiotics. She reports she has been off of antibiotics for one week and continues to feel well. WBC count was wnl at 10.4 at last visit on 11/19. Having pelvic u/s today. Tammy Garsia MD [facility], [place], [address], [facility] 12/07/2021 16:33:33 06/15/2022 text/html 32 yo with h/o TOA, was recently seen in ER for pelvic pain and diagnosed with ovarian cysts. Today US demonstrates: ovaries wnl with follicles. Patient states that her abdominal pain and severe cramping started on 06/05 and continued through her period which started on 06/12. The pain and cramping was concerning and prompted her to go to ER because it was very similar to the pain she experienced with TOA. Since her tubal ligation following her last 3 years ago she has noticed heavier bleeding and painful cramps. MUKESH RUBIN DO [facility], [place], [address], [facility] 06/15/2022 13:04:16 OBGyn Episode No OBEpisode recorded."
--- OUTSIDE RECORDS SUMMARY | 2024-12-01 09:54 | XMS_ITS | Data Portability ---
Author Organization [facility], Main Office Address [address] [place] [id number] Care Team Providers Care Pie Maker Name Role Phone FEDERICO DAN Primary Care Provider Assessment Encounter Date Assessment Date Assessment LastModified by Organization Details LastModified Time 11/28/2024 11/28/2024 34 yo F with - WELL ADULT VISIT - ELEVATED BP; ? HTN - INTERMITTENT PALPITATIONS - VIT D DEFICIENCY - OBESITY II - FH OF DM D/w pt about her findings, recent labs & imagines and further plan of care. Will do routine labs. Will refer pt to Cardio. BP diary education given. Diet and exercise explained in detail. Educated about different options for her. HM: WWE - Few yrs ago. 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 Mammo - Never. Flu - Pt declined. Tdap - Pt to find out. Gardasil - Pt declined. F/u in 2-3 weeks. Annual labs in 12/05. [email or web address] Not available 11/28/2024 12:26:18 Plan of Treatment Reminders Order Date Submit Date Provider Last Modified By Organization Details Last Modified Time Details Appointments Labs 2024 08:30A M [facility] Not available Not available Not available Any 15 2024 08:30A M Federico Dan MD Not available Not available Not available Lab vitamin D, 25-hydrox y, total, serum 2024 025 [email or web address] [facility] (Lab), [address] [place], [address], 11/28/2024 12:18:12 CBC w/ auto diff [address] (Lab), [address] [place], [address], 11/28/2024 12:18:12 CMP, serum or plasma [address] (Lab), [address] [place], [address], 11/28/2024 12:18:12 lipid panel, serum [address] (Lab), [address] [place], [address], 11/28/2024 12:18:12 TSH, serum, reflex free T4 [address] (Lab), [address] [place], [address], 11/28/2024 12:18:12 urinalysi s complete, reflex culture [address] (Lab), [address] [place], [address], 11/28/2024 12:18:11 glycohemo globin, total, blood [address] (Lab), [address] [place], [address], 11/28/2024 12:18:12 Referral cardiolog ist referral 2024 025 Not available 11/28/2024 14:10:28 Procedures None recorded. Surgeries None recorded. Imaging None recorded. Medication Orders benzonata te 200 mg capsule [address] [facility], [address] [facility], [place], [address], 11/28/2024 11:13:54 prednison e 20 mg tablet 2022 023 [email or web address] [facility], [address] [place], [address], 10/20/2023 09:10:51 ProAir HFA 90 mcg/actua tion aerosol inhaler 2022 023 [email or web address] [facility], [address] [place], [address], 11/28/2024 11:57:01 Patient TargetsNo targets recorded. 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 Referring Physician: Federico Dan, Family Medicine, Encounter Date: 11/28/2024 Results Created Date Observation Date Name Description Value Unit Range Abnormal Flag Note LastModifiedBy Organization Detail LastModifiedTime 05/28/2005/28/2023 rapid flu (A+B) Flu A negati ve Not Available [address], [address], 05/28/2023 08:50:52 05/28/20 23 05/28/2023 rapid flu (A+B) Flu B negati ve Not Available [address], [place], [address], 05/28/2023 08:50:52 05/28/20 23 05/28/2023 urina lysis , dipst ick Leukocytes (reference range: negative anastasia/ l) Small Not Available [address], [place], [address], 05/28/2023 08:43:54 05/28/2005/28/2023 urina lysis , dipst ick Nitrite (reference rage: negative mg/dl) negati ve Not Available [address], [place], [address], 05/28/2023 08:43:54 05/28/2005/28/2023 urina lysis , dipst ick Urobilinogen (reference range: 0.2-1 mg/dl) 0.2 Not Available [address], [place], [address], 05/28/2023 08:43:54 05/28/20 23 05/28/2023 urina lysis , dipst ick Protein (reference range: negative mg/dl) Negati ve Not Available [address], [place], [address], 05/28/2023 08:43:54 05/28/20 23 05/28/2023 urina lysis , dipst ick pH (reference range: 5-7) 5.5 Not Available [address], [place], [address], 05/28/2023 08:43:54 05/28/2005/28/2023 urina lysis , dipst ick Blood (reference range: negative Hiram/ l) Non-He molyze d: Trace Not Available [address], [place], [address], 05/28/2023 08:43:54 05/28/20 23 05/28/2023 urina lysis , dipst ick Specific [place] (reference range: 1.005-1.030) 1.030 Not Available [address], [place], [address], 05/28/2023 08:43:54 05/28/20 23 05/28/2023 urina lysis , dipst ick Ketone (reference range: negative mg/dl) Negati ve Not Available [address], [place], [address], 05/28/2023 08:43:54 05/28/20 23 05/28/2023 urina lysis , dipst ick Bilirubin (reference range: negative mg/dl) Negati ve Not Available [address], [place], [address], 05/28/2023 08:43:54 05/28/20 23 05/28/2023 urina lysis , dipst ick Glucose (reference range: negative mg/dl) Negati ve Not Available [address], [place], [address], 05/28/2023 08:43:54 05/28/20 23 05/28/2023 urina lysis , dipst ick Appearance Slight ly Cloudy Not Available [address], [place], [address], 05/28/2023 08:43:54 05/28/20 23 05/28/2023 urina lysis , dipst ick Color Yellow Not Available [address], [place], [address], 05/28/2023 08:43:54 10/20/19 24 10/20/2023 urina lysis , dipst ick Leukocytes (reference range: negative anastasia/ l) Negati ve Not Available [address], [place], [address], 10/19/2023 14:22:33 10/20/19 24 10/20/2023 urina lysis , dipst ick Nitrite (reference rage: negative mg/dl) negati ve Not Available [address], [place], [address], 10/19/2023 14:22:33 10/20/19 24 10/20/2023 urina lysis , dipst ick Urobilinogen (reference range: 0.2-1 mg/dl) 0.2 Not Available [address], [place], [address], 10/19/2023 14:22:33 10/20/19 24 10/20/2023 urina lysis , dipst ick Protein (reference range: negative mg/dl) Negati ve Not Available [address], [place], [address], 10/19/2023 14:22:33 10/20/19 24 10/20/2023 urina lysis , dipst ick pH (reference range: 5-7) 5.5 Not Available [address], [place], [address], 10/19/2023 14:22:33 10/20/19 24 10/20/2023 urina lysis , dipst ick Blood (reference range: negative Hiram/ l) Hemoly zed: Trace Not Available [address], [place], [address], 10/19/2023 14:22:33 10/20/19 24 10/20/2023 urina lysis , dipst ick Specific [place] (reference range: 1.005-1.030) 1.025 Not Available [address], [place], [address], 10/19/2023 14:22:33 10/20/19 24 10/20/2023 urina lysis , dipst ick Ketone (reference range: negative mg/dl) Negati ve Not Available [address], [place], [address], 10/19/2023 14:22:33 10/20/19 24 10/20/2023 urina lysis , dipst ick Bilirubin (reference range: negative mg/dl) Negati ve Not Available [address], [place], [address], 10/19/2023 14:22:33 10/20/19 24 10/20/2023 urina lysis , dipst ick Glucose (reference range: negative mg/dl) Negati ve Not Available [address], [place], [address], 10/19/2023 14:22:33 10/20/19 24 10/20/2023 urina lysis , dipst ick Appearance Slight ly Cloudy Not Available [address], [place], [address], 10/19/2023 14:22:33 10/20/19 24 10/20/2023 urina lysis , dipst ick Color Yellow Not Available [address], [place], [address], 10/19/2023 14:22:33 03/25/20 23 03/25/2023 XR, chest , 2 view No observ ation record ed. [facility] [address] [facility] , [place], [address], 03/26/2023 13:00:40 12/02/19 25 12/01/2024 imagi ng/di agnos tic resul t No observ ation record ed. [facility] [address], [place], [address], 12/01/2024 10:28:54 Result Notes None recorded. Problems Name Problem SNOMED Code Status Onset Date Resolution Date Notes Provider Name and Address Organization Details Recorded Time Intermitte nt palpitatio ns 773851659 Active Not Available [facility] 3 08:56:46 Bilateral plantar fasciitis 4138384425591 9108 Active 2020 Not Available [facility] 3 08:56:47 Ganglion cyst 539291336 Active Not Available [facility] 3 08:56:47 Hernia of abdominal cavity 05999101 Active c-sect ion scar Not Available [facility] 08:56:48 Obesity 876508493 Active 2024 Federico Dan MD [address], [place], [address] , [employer] 5 12:15:00 Elevated blood-pres sure reading without diagnosis of hypertensi on 140879672 Active 2024 Federico Dan MD [address], [place], [address] , [employer] 5 12:15:18 Vitamin D deficiency 76992868 Active 2024 Federico Dan MD [address], [place], [address] , [employer] 5 12:16:04 Family history of diabetes mellitus 612377078 Active 2024 Federico Dan MD [address], [place], [address] , [employer] 5 12:24:45 Problem Notes None recorded. Procedures Surgical History Date Name Laterality Status Provider Name and Address Organization Details Recorded Time completed Marli Stephens RN [facility] [employer] [facility] 11/28/2024 12:07:19 Gastrointestinal Surgery completed Not Available [facility] 11/11/2022 08:53:50 Imaging Results Imaging Date Name Status LastModified by Organiz ation Details LastModified Time 03/25/2023 XR, chest, 2 view completed [facility] [address] [facility] , [place], [address], 03/26/2023 13:00:40 12/01/2024 imaging/diag nostic result active [facility] [address], [place], [address], 12/01/2024 10:28:54 Procedure Notes None recorded. Medical Equipment None Reported. Allergies No known drug allergies Medications Name Sig Start Date Stop Date Status Note LastModified by Organization Details LastModified Time eq sinus & congestion 30mg tab TAKE 2 TABLETS BY MOUTH EVERY 6 HOURS 11/28 completed Not Available Not Available Not Available penicillin V potassium 250 mg tablet TAKE 1 TABLET BY MOUTH 4 TIMES DAILY FOR 7 DAYS 04/03 completed Not Available Not Available Not Available cyclobenzap rine 10 mg tablet Take 1 tablet 3 times a day by oral route. 03/18 completed Not Available Not Available Not Available hydroxyzine pamoate 100 mg capsule Take 1 capsule 4 times a day by oral route. 03/18 completed Not Available Not Available Not Available amoxicillin 500 mg capsule TAKE 1 CAPSULE BY MOUTH EVERY 8 HOURS UNTIL GONE 06/01 completed Not Available Not Available Not Available Mirena 21 mcg/24 hr (up to 8 years) 52 mg intrauterin e device Take by intrauter ine route. 2014 active Not Available Not Available Not Avai lable metformin 500 mg tablet 06/03 completed Not Available Not Available Not Available prednisone 10 mg tablet 09/16 completed Not Available Not Available Not Available doxycycline hyclate 100 mg capsule TAKE 1 CAPSULE BY MOUTH TWICE DAILY FOR 10 DAYS 01/26 completed Not Available Not Available Not Available azithromyci n 250 mg tablet 2 tabs po qd x 1 day then 1 tab po qd x 4 days 09/16 completed Not Available Not Available Not Available ibuprofen 800 mg tablet Take 1 tablet 3 times a day by oral route. 03/18 completed Not Available Not Available Not Available benzonatate 200 mg capsule TAKE 1 CAPSULE BY MOUTH THREE TIMES DAILY NEEDED 11/28 completed Not Available Not Available Not Available hydrocodone 5 mg-acetamin ophen 325 mg tablet TAKE 1 TABLET BY MOUTH EVERY 6 HOURS NEEDED FOR PAIN 10/13 completed Not Available Not Available Not Available Nystop 100,000 unit/gram topical powder APPLY TO THE AFFECTED AREA(S) BY TOPICAL ROUTE 2 TIMES PER DAY active Not Available Not Available No t Available phenazopyri dine 200 mg tablet TAKE 1 TABLET BY MOUTH THREE TIMES DAILY NEEDED 11/28 completed Not Available Not Available Not Available famotidine 40 mg tablet 12/04 completed Not Available Not Available Not Available Medrol (Donny) 4 mg tablets in a dose pack TAKE DIRECTED. 03/17 completed Not Available Not Available Not Available prednisone 20 mg tablet TAKE 3 TABLETS BY MOUTH ONCE DAILY FOR 3 DAYS AND THEN 2 ONCE DAILY FOR 3 DAYS AND THEN 1 ONCE DAILY FOR 3 DAYS AND THEN 1/2 (ONE-HALF ) ONCE DAILY FOR 3 DAYS THEN STOP 10/20 completed Not Available Not Available Not Available Tubersol 5 tub. unit/0.1 mL intradermal injection solution Take 0.1 mL by intraderm al route. 09/16 completed Not Available Not Available Not Available Zyrtec 10 mg tablet Take 1 tablet every day by oral route in the morning for 30 days. 01/20 completed Not Available Not Available Not Available metronidazo le 500 mg tablet TAKE 1 TABLET BY MOUTH THREE TIMES DAILY FOR 14 DAYS 01/26 completed Not Available Not Available Not Available ciprofloxac in 500 mg tablet TAKE 1 TABLET BY MOUTH EVERY 12 HOURS FOR 3 DAYS 04/03 completed Not Available Not Available Not Available sulfamethox azole 800 mg-trimetho prim 160 mg tablet TAKE 1 TABLET BY MOUTH EVERY 12 HOURS FOR 3 DAYS active Not Available Not Available No t Available tramadol 50 mg tablet TAKE 1 TABLET BY MOUTH EVERY 6 HOURS NEEDED FOR PAIN 10/13 completed Not Available Not Available Not Available triamcinolo ne acetonide 0.1 % topical cream APPLY A THIN LAYER OF CREAM EXTERNALL Y TO THE AFFECTED AREA TWICE DAILY 03/17 completed Not Available Not Available Not Available bupropion HCl SR 100 mg tablet,12 hr sustained-r elease TAKE 1 TABLET BY MOUTH TWICE DAILY 04/03 completed Not Available Not Available Not Available alprazolam 0.5 mg tablet 1/2 to 1 tab po qhs prn 09/03 completed Not Available Not Available Not Available amoxicillin 875 mg tablet Take 1 tablet every 12 hours by oral route for 10 days. active Not Available Not Available No t Available dicyclomine 20 mg tablet Take 1 tablet 4 times a day by oral route as needed. active Not Available Not Available No t Available meclizine 25 mg tablet Take 1 tablet 3 times a day by oral route as needed for 30 days. 10/27 completed Not Available Not Available Not Available doxycycline monohydrate 100 mg capsule TAKE 1 CAPSULE BY MOUTH TWICE DAILY FOR 14 DAYS 01/26 completed Not Available Not Available Not Available hydrocodone 7.5 mg-acetamin ophen 325 mg tablet 11/20 completed Not Available Not Available Not Available pantoprazol e 40 mg tablet,[place] yed release TAKE 1 TABLET BY MOUTH IN THE MORNING 04/03 completed Not Available Not Available Not Available diphenhydra mine 25 mg capsule 09/16 completed Not Available Not Available Not Available oseltamivir 75 mg capsule Take 1 capsule twice a day by oral route for 5 days. 06/03 completed Not Available Not Available Not Available ferrous sulfate 325 mg (65 mg iron) tablet 10/13 completed Not Available Not Available Not Available triamcinolo ne acetonide 0.1 % topical ointment Apply 1 applicati on twice a day by topical route as needed. active Not Available Not Available No t Available ranitidine 150 mg tablet Take 1 tablet twice a day by oral route for 30 days. active Not Available Not Available No t Available propranolol ER 80 mg capsule,24 hr,extended release Take 1 capsule every day by oral route for 30 days. active Not Available Not Available No t Available diclofenac sodium 75 mg tablet,[place]ia yed release TAKE 1 TABLET BY MOUTH TWICE DAILY NEEDED 10/07 completed Not Available Not Available Not Available amoxicillin 400 mg/5 mL oral suspension 10/27 completed Not Available Not Available Not Available furosemide 20 mg tablet Take 1 tablet every day by oral route. active Not Available Not Available No t Available ergocalcife rol (vitamin D2) 1,250 mcg (50,000 unit) capsule Take 1 capsule every week by oral route for 28 days. active Not Available Not Available No t Available clobetasol 0.05 % topical ointment APPLY A THIN LAYER TO THE AFFECTED AREA(S) BY TOPICAL ROUTE 2 TIMES PER DAY x 7 days. do not use on face, underarms or genitals. 05/18 completed Not Available Not Available Not Available ibuprofen 600 mg tablet TAKE 1 TABLET BY MOUTH EVERY 6 TO 8 HOURS NEEDED FOR PAIN 04/03 completed Not Available Not Available Not Available polyethylen e glycol 3350 17 gram/dose oral powder 1 capful in 4-8 ounces liquid po qday prn constipat ion 04/03 completed Not Available Not Available Not Available albuterol sulfate HFA 90 mcg/actuati on aerosol inhaler INHALE 2 PUFFS BY MOUTH EVERY 4 HOURS NEEDED 04/12 completed Not Available Not Available Not Available fluticasone propionate 50 mcg/actuati on nasal spray,suspe nsion [place] 1 spray every day by intranasa l route. 10/13 completed Not Available Not Available Not Available Lac-Hydrin 12 % lotion apply to bilateral arms bid 03/18 completed Not Available Not Available Not Available Sudafed 30 mg tablet Take 2 tablets every 6 hours by oral route. 11/28 completed Not Available Not Available Not Available amoxicillin 875 mg-potassiu m clavulanate 125 mg tablet TAKE 1 TABLET BY MOUTH EVERY 12 HOURS FOR 7 DAYS 10/20 completed Not Available Not Available Not Available oxycodone 5 mg tablet 01/20 completed Not Available Not Available Not Available escitalopra m 10 mg tablet Take 1 tablet every day by oral route. 03/18 completed Not Available Not Available Not Available Sprintec (28) 0.25 mg-0.035 mg tablet 10/13 completed Not Available Not Available Not Available cyclobenzap rine 5 mg tablet Take 1 tablet 3 times a day by oral route as needed. active Not Available Not Available No t Available bupropion HCl XL 150 mg 24 hr tablet, extended release Take 1 tablet every day by oral route. active Not Available Not Available No t Available 10/02 (28) 1 mg-20 mcg (21)/75 mg (7) tablet TAKE 1 TABLET BY MOUTH ONCE DAILY DIRECTED 10/13 completed Not Available Not Available Not Available nitrofurant oin monohydrate /macrocryst als 100 mg capsule TAKE 1 CAPSULE BY MOUTH EVERY 12 HOURS FOR 5 DAYS 03/17 completed Not Available Not Available Not Available OneTouch UltraMini kit 06/03 completed Not Available Not Available Not Available Travel Sickness (meclizine) 25 mg chewable tablet 11/20 completed Not Available Not Available Not Available OneTouch Delvielka Lancets 33 gauge 06/03 completed Not Available Not Available Not Available Vitamin D3 125 mcg (5,000 unit) tablet Take 1 tablet every day by oral route. 10/13 completed Not Available Not Available Not Available Classic 28 mg iron-800 mcg tablet 12/04 completed Not Available Not Available Not Available OneTouch Ultra Blue Test Strip 06/03 completed Not Available Not Available Not Available Ubrelvy 50 mg tablet Take 1 tablet every day by oral route as needed. 10/13 completed Not Available Not Available Not Available Vitals Date Recorded Body height Body mass index (BMI) Body weight Body temperature Heart rate Oxygen saturation Oxygen saturation in Arterial blood by Pulse oximetry Systolic blood pressure Diastolic blood pressure Provider Name and Address Organization Details Last Updated DateTime 3 156.21 cm 41.6 kg/m2 861092. 69 g 97.4 [degF] 84 /min 98 % 98 % 128 mm[Hg] 86 mm[Hg] Kait cantu [facility] [employer] [facility] [employer] [facility] 3 08:29:15 Date Recorded Body height Provider Name an d Address Organization Details Last Updated DateTime 05/28/2023 156.21 cm Yanique Pearce LPN [facility] [employer] [facility] 05/28/2023 11:20:13 Date Recorded Body height Provider Name an d Address Organization Details Last Updated DateTime 10/20/2023 156.21 cm Kait Almonte [facility] [employer] [facility] [employer] [facility] 10/20/2023 09:09:22 Date Recorded Body height Body mass index (BMI) Body weight Body temperature Oxygen saturation Oxygen saturation in Arterial blood by Pulse oximetry Heart rate Systolic blood pressure Diastolic blood pressure Provider Name and Address Organization Details Last Updated DateTime 5 157.48 cm 39.2 kg/m2 53175.4 7 g 97.4 [degF] 97 % 97 % 76 /min 138 mm[Hg] 90 mm[Hg] Marli Stephens RN [place] [facility] [place] [employer] 5 11:56:09 Social History Question Answer Notes LastModified by Organizat ion Details LastModified Time Tobacco Smoking Status Never Smoker Not Available [facility] 11/11/2022 08:53:33 What Is Your Level Of Alcohol Consumption? None [id number] Information not available 11/11/2022 What Is Your Level Of Caffeine Consumption? Occasional One Cup Coffee Per Day [email or web address] Information not available 11/28/2024 How Much Tobacco Do You Chew? None [id number] Information not available 11/11/2022 In The 14 Days Before Symptom Onset, Have You Had Close Contact With A Laboratory-confir med COVID-19 While That Case Was Ill? No [id number] Information not available 11/11/2022 In The 14 Days Before Symptom Onset, Have You Had Close Contact With A Person Who Is Under Investigation For COVID-19 While That Person Was Ill? No [id number] Information not available 11/11/2022 What Type Of Diet Are You Following? REGULAR [id number] Information not available 11/11/2022 Which Illicit Or Recreational Drugs Have You Used? No [id number] Information not available 11/11/2022 Do You Or Have You Ever Used E-cigarettes Or Vape? 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 No [id number] Information not available 11/11/2022 What Was The Date Of Your Most Recent Tobacco Screening? 09/22/2018 [id number] Information not available 11/11/2022 Are You Passively Exposed To Smoke? No [id number] Information not available 11/11/2022 Do You Or Have You Ever Used Smokeless Tobacco? Never Used Smokeless Tobacco [id number] Information not available 11/11/2022 Do You Use Any Illicit Or Recreational Drugs? No [email or web address] Information not available 11/28/2024 Do You Have Any Dietary Restrictions? No [id number] [id number] Information not available 11/11/2022 Do You Or Have You Ever Used Any Other Forms Of Tobacco Or Nicotine? No [id number] Information not available 11/11/2022 Sex: Unknown Functional Status Question Answer Note LastModified by Organizat ion Details LastModified Time What is your exercise level? Moderate [id number] Information not available 11/11/2022 Mental Status None recorded. Family History Relationship Description Onset Age of this Age Resolved Age Notes LastModified by Organization Details LastModified Time Paternal Grandmother Intracranial aneurysm Not available 11/28 12:03:04 Maternal Grandmother Disorder of bone [id number] Not available 11/11/2022 08:53:51 Maternal Grandmother Osteoporosis [id number] [id number] Not available 11/11/2022 08:53:51 Maternal Grandmother Diabetes mellitus 58 [email or web address] Not available 11/28 12:00:09 Father Diabetes mellitus 50 55 Not available 11/28 11:59:47 Father Hypertensive disorder 55 [email or web address] Not available 11/28 12:01:20 Father Pulmonary embolism 55 Not available 11/28 12:04:48 Father Arthritis [id number] Not available 11/11/2022 08:53:51 Father Heart disease [id number] Not available 11/11/2022 08:53:51 Mother Diabetes mellitus 55 Not available 11/28 11:59:36 Mother Arthritis 50 Not availa ble 11/28/2024 12:00:49 Mother Hypertensive disorder 55 Not available 11/28 12:01:15 Brother Heart disease 39 unknow n heart proble m heart attack Not available 11/28/2024 12:02:12 Brother Myocardial infarction 39 [email or web address] Not available 11/11 12:02:43 Medical History Condition Response HEADACHES/MIGRAINES Y ANXIETY DISORDER Y DEPRESSION (INCLUDING POST ) Y BACK / NECK PROBLEMS Y ANEMIA/BLOOD DISORDER Y Gynecological History Statement/Question Response How many live births 4 Abnormal Pap Y Flow Heavy Date of LMP 02/19/2021 Dislike of Light during Menstrual Headac he N Menses Monthly Y Duration of Flow (days) 4 Current Control Method None Age at Menarche 12 Breast Problems no Obstetrics History GPAL:G 4 P 0 0 0 4 Type Value Living 4 Total 4 Immunizations Vaccine Type Date Status Note Provider Nam e and Address Organization Details Recorded Time Influenza, split virus, quadrivalent, preservative 7 completed Federico Dan MD [address] [facility], [place] [address], [place], [address], [facility] 11/28/2024 12:21:59 influenza, unspecified formulation 0 completed Federico Dan MD [facility] [facility], [address], [address], [facility] 11/28/2024 12:21:59 Novel [id number]-[id number] , all formulations 0 completed Federico Dan MD [address] [facility], [address], [address], [facility] 11/28/2024 12:21:59 Hep A, adult 4 completed Not [facility] 11/11/2022 09:00:07 Past Encounters Encounter ID Performer Location Encounter Start Date Encounter Closed Date Diagnosis/Indication Diagnosis SNOMED-CT Code Diagnosis ICD10 Code Diagnosis Note [id number] [facility] [address] [place] [address] 02/05/2021 00:00:00 02/05/2021 20:07:51 [id number] [facility] [address] [place] [address] 03/11/2021 00:00:00 03/11/2021 20:53:39 [id number] [facility] [address], [facility] 4 [place] [address] 04/03/2021 00:00:00 04/03/2021 16:49:51 [id number] [facility] [address], [facility] 4 [place] [address] 04/24/2021 00:00:00 04/24/2021 14:13:40 [id number] [facility] [place] [address] [place] [address] 04/29/2021 00:00:00 05/11/2021 22:29:01 [id number] [facility] [place] [address] [place] [address] 05/06/2021 00:00:00 05/06/2021 09:12:19 [id number] [facility] [place] [address] [place] [address] 06/20/2021 00:00:00 06/20/2021 11:33:11 [id number] [facility] [place] [address] [place] [address] 11/05/2021 00:00:00 11/05/2021 13:39:03 [id number] [facility] [place] [address] [place] [address] 01/27/2022 00:00:00 01/27/2022 13:04:54 [id number] [facility] [place] [address] [place] [address] 03/03/2022 00:00:00 03/03/2022 08:39:18 [id number] [facility] [place] [address] [place] [address] 05/29/2022 00:00:00 05/29/2022 13:10:48 [id number] [facility] [place] [address] [place] [address] 06/02/2022 00:00:00 06/02/2022 14:01:59 [id number] [facility] [place] [address] [place] [address] 09/28/2022 00:00:00 09/28/2022 20:10:54 [id number] [facility] Ortho [place] [address] [place] [address] 10/13/2022 00:00:00 10/13/2022 09:49:46 [id number] [facility] [address] [facility] [address] [place] [address] 11/06/2022 00:00:00 11/06/2022 13:32:07 [id number] PAULETTE Wsetbrook [facility] [address] [facility] [address] [place] [address] 11/20/2022 09:04:48 11/20/2022 09:40:10 Lightheadedness 156655361 R42 Will check blood sugars. Advised to also monitor BP while at home to make sure no fluctuatio ns. Headache 27801507 R51.9 Has been consistent for last week. Will try to break cycle with steroids.A dvised to stay well-hydra severo, eat well balanced diet. Increase sleep. Dysuria 02763992 R30.0 Recheck urine for continued infection. [id number] BAKARI Rodrigues [facility] Primary Care [facility] [address] [place] [address] [address] [place] [address] 01/29/2023 14:51:53 01/29/2023 16:13:55 [id number] PAULETTE Westbrook [facility] [address] [place] [address] [address] [place] [address] 03/17/2023 08:22:03 03/17/2023 09:44:08 Persistent cough 039740981 R05.3 Symptoms most likely just allergic, brought on by environmen t.Will do course of steroids, cough medication and inhaler.Ad vised coughs can linger for weeks. If no improvemen t over next few weeks then will plan for CXR. [id number] JONH Hammond [facility] Primary Care [facility] [address] [facility] [address] [place] [address] 05/28/2023 09:17:57 05/28/2023 17:09:45 [id number] JONH Hammond [facility] [address] [facility] [address] [place] [address] 10/20/2023 08:52:23 10/20/2023 09:11:46 [id number] Federico Dan MD [facility] [address] [address] [place] [address] 11/28/2024 11:44:44 11/28/2024 14:10:28 Adult health examination 331455457 Z00.00 Obesity 302696282 E66.9 Elevated blood-pressure reading without diagnosis of hypertension 767533269 R03.0 Vitamin D deficiency 347 38452 E55.9 Family his tory of diabetes mellitus 228470754 Z83.3 Intermitte nt palpitations 327128124 R00.2 Health Concerns Section Related Observation LastModified by Organization Detai ls LastModified Time None Recorded Concern Status LastModified by Organization Details LastModified Time None Recorded Advance Directives Directive None Recorded Payers Encounter Date Sequence Insurance Name Policy Number Policy Vargas Covered Member ID Vargas Member ID Guarantor Name 03/17/2023 1 [facility] ON OR AFTER 03/13/21 (MEDICAID REPLACEMENT - HMO) Ashley Phoenix [id number] Ashley Phoenix 05/28/2023 1 [facility] ON OR AFTER 03/13/21 (MEDICAID REPLACEMENT - HMO) Ashley Phoenix [id number] Ashley Phoenix 10/20/2023 1 [facility] ON OR AFTER 03/13/21 (MEDICAID REPLACEMENT - HMO) Ashley Phoenix [id number] Ashley Phoenix 11/28/2024 1 [employer] [id number] Ashley Phoenix [id number] Ashley Phoenix 11/28/2024 2 [place] [employer] Ashley Phoenix [id number] Ashley Phoenix Notes Date Note Type Note Provider Name and Address Organization Details Recorded Time 03/17/2023 text/html Pt. has complain ts of a cough that started around 03/10. She took a covid test 03/11 which was negative. She states after we had the really smoky day she felt like she had dirt in her throat and symptoms started. She states she has noticed crackling in her lungs. She has tried using homemade tea with prairie band/honey. She has tried otc cold/flu. PAULETTE Westbrook [address], [facility] [address], [place], [address], [facility] [employer] [facility] [employer] 03/17/2023 08:50:50 11/28/2024 text/html New pt visit:34 yo F is here to establish her care. Pt was seeing PCP at [place], [place] in the past.Doing overall well. C/o intermittent palpitations for last several years. Pt was seeing Cardio for this and was told that she has leaky valves . But then, that doctor moved out. So pt needs to f/u with another cardio. Denies any h/o HTN in the past. Denies any mood concern/anxiety issues.PMH, FH and SH reviewed. Federico Dan MD [address], [facility] [address], [place], [address], [employer] 11/28/2024 12:26:55 OBGyn Episode No OBEpisode recorded.
--- OUTSIDE RECORDS SUMMARY | 2024-12-01 10:01 | XMS_ITS | CONTINUITY OF CARE DOCUMENT ---
Author Name lb asher Address Unknown Organization [facility] Address [address] [place] [address] Phone [phone] Care Team Providers Care Guide Escort Name Role Phone Teo ROACH, Cesar Unavailable DARNELL MONTANEZ, JUAN CARLOS Unavailable [phone] DARNELL MONTANEZ, JUAN CARLOS Unavailable PROBLEMS Condition Status Date Provider Notes Unspecified chest pain active Cesar leyva MD Dizziness and lightheadedness active Valentin Bruce MD Iron deficiency anemia active Cesar leyva MD Obese active Cesar Bruce MD ENCOUNTERS Date Type Provider Location Encounter Diag nosis - In-person encounter Office Visit Cesar Bruce MD [facility] - In-person encounter Office Visit Cesar Bruce MD [facility] Unspecified chest painDizziness and lightheadednessIron deficiency [...] Payer name Policy type / Coverage type [place] [employer] [place] [employer] (2) Medicaid [id number] ADVANCE DIRECTIVES Name Date DISCUSSED - NO DECISION MADE TREATMENT PLAN Date Name Performer [id number],C,T he patient states she has episodes at night where she wakes up gasping ofr air, 'like she was forgetting to breath'. She also admits to daytime sleepiness. I am going to obtain a home sleep study to asses for MARSHALL. Reyes So NP [id number],C,S he continues on PO Iron supplementation as directed by her PCP Reyes So NP [id number],C,H er stress test was negative for ischemia and her echo shows normal LV systolic function. I will not pursue any additional cardiac testing at this time. Reyes So NP [id number],S,Possibly has MARSHALL. Cesar Bruce MD [id number],S,Treated by LANCE Smith. Cesar Bruce MD [id number],S,W ill schedule stress test and echo and [...]
== END 2024-12-01 09:31 | disposition home or self-care (01) ==
PROVIDERS: Emergency Provider Nurse Practitioner; PCP Family Medicine
DX: M79.641 Pain in right hand (principal)
CPT/HCPCS: 73130; 99213; G0463